=== PATIENT | male | born 1980 | race African-American/Black ===

== ENCOUNTER 2024-02-06 10:25 | Emergency (ER) | payer SELFPAY ==
[2024-02-06 12:14] LABS: Bilirubin Neg (Negative); Blood, Urine Negative (Negative); Clarity Clear (Clear); Glucose, Urine (Dipstick) Normal (Negative); Ketone, Urine Negative (Negative); Leukocyte Negative (Negative); Nitrite Negative (Negative); Protein, Urine (Dipstick) 30 mg/dl (Neg-Trace); Specific Gravity, Urine 1.015 (1.005-1.030); Urobilinogen Normal mg/dL (Less than 2)
[2024-02-06 12:43] LABS: Bacteria/HPF 1+ HPF (None Seen); CAUTI Indications for Culture Dysuria,urgency,freq; RBC/HPF 0-3 HPF (0-3); Squamous Epithelial 0-3 HPF (0-3); WBC/HPF 0-3 HPF (0-3)
[2024-02-06 12:44] LABS: Mucous/LPF 2+ LPF (<2+)
[2024-02-06 12:45] LABS: Urine Culture Reflex No No
[2024-02-06 20:32] LABS: Chlam.trachomatis by PCR,Urine Not Detected (NotDetected); GC N.gonorrhoeae PCR,UrineVOID Not Detected (NotDetected)
== END 2024-02-06 14:26 | disposition home or self-care (01) ==
LOC: CSHERS 10:25
DX: N39.0 Urinary tract infection, site not specified (principal); I10 Essential (primary) hypertension
CPT/HCPCS: 81001; 87491; 87591; 99283